=== PATIENT | male | born 1945 | race African-American/Black ===

== ENCOUNTER 2018-12-19 09:50 | Emergency (ER) | payer MEDICARE, MEDICAID ==
[~2018-12-19] VITALS: Ht 182.9 cm; Wt 113.4 kg
[~2018-12-19 09:50] MED LIST: ALLO300T PO; AMOX500T PO; ASPI325T8 PO; BRIM5DRO LEFTEYE; CITA20TA9 PO; CLON1PAT11 TD; CLOP75TA57 PO; DONE10TA7 PO; FENT1PAT15 TP; HYDR-2761 PO; INSU100V31 SQ; LISI10TA2 PO; LOVA40TA2 PO; MECL12.5 PO; MEMA10TA PO; METF500T9 PO; METO25TA4 PO; MIRT15TA PO; MULT-658 PO; NIFE60TA PO; PHEN100C PO; SENN-80 PO; TAMS0.4C2 PO
--- NOTE | 2018-12-19 11:43 | RAD ---
Bilateral lower extremity venous Doppler ultrasound History: Bilateral lower extremity edema. Comparison: None. Procedure: Color flow Doppler, Doppler spectral analysis, and 2D images are obtained with and without compression in the area of the common femoral vein, superficial femoral vein - femoral vein junction, main femoral vein (superficial femoral vein) and popliteal vein. Veins of the proximal calf are also imaged. Findings: There is normal color flow, augmentation, and compressibility of all visualized vein segments. No evidence of deep venous thrombus is present. IMPRESSION: No evidence of right or left lower extremity deep venous thrombosis. Electronically signed by: Carlos Nj MD (12/19/2018 11:39 AM) [facility]
--- NOTE | 2018-12-19 11:53 | PHYS DOC ---
Past Medical History Past Medical History: Anemia, Dementia, Depression, Diabetes-Type II, DVT, High Cholesterol, Hypertension, Renal Failure, Other Additional Past Medical Histor: Total vision loss one eye Past Surgical History: Other Additional Past Surgical Histo: Not on [place] paperwork Alcohol Use: None Drug Use: None Adult General Chief Complaint Chief Complaint: LOWER EXTREMITY EDEMA [facility] HPI Patient is a 73 year old male resident of [facility] with history of dementia and bed bound condition and chronic DVT brought in for evaluation of DVT. Patient was seen by a new physician at correction was concern for possible DVT and bilateral lower extremity and requested evaluation of patient in ER. Patient is alert and oriented �1 and denies pain or new swelling of his extremity, shortness of breath or chest pain, new focal neuro deficit. Review of Systems Review of Systems Constitutional: Denies fever or chills [] Eyes: Denies change in visual acuity, redness, or eye pain [] HENT: Denies nasal congestion or sore throat [] Respiratory: Denies cough or shortness of breath [] Cardiovascular: No additional information not addressed in HPI [] GI: Denies abdominal pain, nausea, vomiting, bloody stools or diarrhea [] : Denies dysuria or hematuria [] Musculoskeletal: Denies back pain or joint pain [] Integument: Denies rash or skin lesions [] Neurologic: Denies headache, focal weakness or sensory changes [] Endocrine: Denies polyuria or polydipsia [] All other systems were reviewed and found to be within normal limits, except as documented in this note. Allergies Allergies Allergies Coded Allergies Type Severity Reaction Last Updated Verified No Known Drug Allergies 10/25/13 No Physical Exam Physical Exam Constitutional: Well nourished, no acute distress, non-toxic appearance. [] HENT: Normocephalic, atraumatic Eyes: PERRLA, EOMI, conjunctiva normal, no discharge. [] Neck: Normal range of motion, no tenderness, supple, no stridor. [] Cardiovascular:Heart rate regular rhythm, no murmur [] Lungs & Thorax: Bilateral breath sounds clear to auscultation [] Extremities: No tenderness, no cyanosis, no clubbing, 1+ bilateral lower extremity edema, no neurovascular deficit Neurologic: Alert and oriented X 3, normal motor function, normal sensory function, no focal deficits noted. [] Psychologic: Affect normal, judgement normal, mood normal. [] Current Patient Data Vital Signs Vital Signs Date Time Temp Pulse Resp B/P (MAP) Pulse Ox O2 Delivery O2 Flow Rate FiO2 12/19/18 10:00 97.8 64 18 150/69 (96) 96 Room Air 97.8 EKG EKG [] Radiology/Procedures Radiology/Procedures [][facility] [address] [place] [address] IMAGING REPORT Signed PATIENT: MELY CUI ACCOUNT: [id number] : 1945 LOCATION: ER AGE: 73 SEX: M EXAM STATUS: REG ER ORD. PHYSICIAN: CRYSTAL FRAZIER MD REASON: bilateral lower extremity edema PROCEDURE: VENOUS LOWER EXT BILATERAL Bilateral lower extremity venous Doppler ultrasound History: Bilateral lower extremity edema. Comparison: None. Procedure: Color flow Doppler, Doppler spectral analysis, and 2D images are obtained with and without compression in the area of the common femoral vein, superficial femoral vein - femoral vein junction, main femoral vein (superficial femoral vein) and popliteal vein. Veins of the proximal calf are also imaged. Findings: There is normal color flow, augmentation, and compressibility of all visualized vein segments. No evidence of deep venous thrombus is present. IMPRESSION: No evidence of right or left lower extremity deep venous thrombosis. Electronically signed by: Robert Nj MD (12/19/2018 11:39 AM) [facility] DICTATED and SIGNED BY: ROBERT NJ MD DATE: 12/19/18 1139 Course & Med Decision Making Course & Med Decision Making Pertinent Imaging studies reviewed. (See chart for details) Evaluation of patient in ER showed 73-year-old male patient resident of correction brought in by EMS for evaluation of bilateral lower extremity DVT. Patient had history of previous DVT without taking anticoagulation medication. Bilateral lower extremity ultrasound did not show DVT and patient was discharged to the correction. Dragon Disclaimer Dragon Disclaimer This electronic medical record was generated, in whole or in part, using a voice recognition dictation system. Departure Departure Impression: Primary Impression: Feared condition not demonstrated Additional Impression: Dementia Disposition: 01 HOME, SELF-CARE (correction at 1152) Condition: STABLE Referrals: UNKNOWN PCP NAME (PCP) Patient Instructions: Peripheral Edema Additional Instructions: Follow-up with your primary care physician in 2 days Return to ER if not getting better Problem Qualifiers Additional Impression: Dementia Alzheimer's disease onset: unspecified onset Dementia behavioral disturbance: without behavioral disturbance CRYSTAL FRAZIER MD Dec 19, 2018 11:53
[2018-12-19 13:00] VITALS: BP 143/65
== END 2018-12-19 13:05 | disposition home or self-care (01) ==
LOC: ER 09:50
DX: Z71.1 Person with feared health complaint in whom no diagnosis is made (principal); F03.90 Unspecified dementia, unspecified severity, without behavioral disturbance, psychotic disturbance, mood disturbance, and anxiety; E78.00 Pure hypercholesterolemia, unspecified; I12.9 Hypertensive chronic kidney disease with stage 1 through stage 4 chronic kidney disease, or unspecified chronic kidney disease; E11.22 Type 2 diabetes mellitus with diabetic chronic kidney disease; N18.9 Chronic kidney disease, unspecified; Z86.718 Personal history of other venous thrombosis and embolism
CPT/HCPCS: 93970; 99284-25